=== PATIENT | female | born 1995 | race Caucasian/White ===

== ENCOUNTER 2018-01-31 22:00 | Outpatient (CLI) | payer SELFPAY ==
[2018-02-01 00:11] VITALS: BMI 41.1
[2018-02-01 01:03] VITALS: BP 116/71; PULSE 98; RESP 18; TEMP 36.5; O2SAT 98
--- NOTE | 2018-02-01 09:41 | OB.TRI.NOTE ---
History of Present Illness Date of Service: 01/31/18 Reason For Visit: R/O LABOR Date of Service: 01/31/18 Final RAGHU: 03/14/18 Gestational age: 34 Weeks and 1 Days Allergies naproxen [From Aleve] Allergy (Verified 02/01/18 00:11) Other Physical Exam Vitals: Vital Signs Temp Pulse Resp BP Pulse Ox 97.7 F L 98 18 116/71 98 02/01/18 01:03 02/01/18 01:03 02/01/18 01:03 02/01/18 01:03 02/01/18 01:03 NST - FHR Rate Baby A Baseline: 145 Variability:: Moderate Accelerations:: 15 x 15 Decelerations:: None NST Reactive:: Yes FHR Category:: Category I Uterine Activity:: rare ctxs, irritability Impression/Plan 22 YOF high risk multigravida at 34 1/7 weeks w/ c/o vaginal pain. Here for r/o labor no evidence of labor f/u in office of her choice in 1 week or prn no acute obstetrical or medical issues heat/ice prn musculoskeletal discomfort of , may use support band prn
--- NOTE | 2018-02-01 09:44 | OB.TRI.HP_ITS ---
History of Present Illness Date of Service: 01/31/18 Reason For Visit: R/O LABOR Date of Service: 01/31/18 Final RAGHU: 03/14/18 Gestational age: 34 Weeks and 1 Days Allergies naproxen [From Aleve] Allergy (Verified 02/01/18 00:11) Other Physical Exam Vitals: Vital Signs Temp Pulse Resp BP Pulse Ox 97.7 F L 98 18 116/71 98 02/01/18 01:03 02/01/18 01:03 02/01/18 01:03 02/01/18 01:03 02/01/18 01:03 NST - FHR Rate Baby A Baseline: 145 Variability:: Moderate Accelerations:: 15 x 15 Decelerations:: None NST Reactive:: Yes FHR Category:: Category I Uterine Activity:: rare ctxs, irritability Impression/Plan 22 YOF high risk multigravida at 34 1/7 weeks w/ c/o vaginal pain. Here for r/ o labor no evidence of labor f/u in office of her choice in 1 week or prn no acute obstetrical or medical issues heat/ice prn musculoskeletal discomfort of , may use support band prn
== END 2018-02-01 00:20 | disposition home or self-care (01) ==
LOC: WPOUT 22:34 → WP 22:35
PROVIDERS: Family Provider Family Medicine; PCP Family Medicine; Visit Provider Obstetrics & Gynecology
DX: O26.893 Other specified pregnancy related conditions, third trimester (principal); R10.2 Pelvic and perineal pain; Z3A.34 34 weeks gestation of pregnancy
CPT/HCPCS: 59025; 59050; 99218; G0378

== ENCOUNTER 2018-02-26 21:53 | Outpatient (CLI) | payer SELFPAY ==
[2018-02-26 22:32] VITALS: BMI 59.5
[2018-02-26 23:07] LABS: Red Blood Cells-Urine 0 SEEN /hpf (0-5)
[2018-02-26 23:11] LABS: Color, Urine Yellow (Yellow); Glucose, Dipstick Normal (Normal); Ketone-Dipstick 15 mg/dl (Negative); Leukocyte Esterase-Dipstick 100 /ul (Negative); Nitrite-Dipstick Negative (Negative); Occult Blood-Urine Negative /ul (Negative); Protein-Dipstick 30 mg/dl (Negative); Urine Bilirubin Dipstick Negative (Negative); Urine Clarity Clear (Clear); Urine Urobilinogen 1 mg/dl (Normal); Urine pH 6.5 (5.0 - 8.0)
[2018-02-26 23:17] LABS: Bacteria 1+ /hpf (None Seen); Mucous, Urine 1+ /hpf (<or=2+); Squamous Epithelial Cells - UA 10-25 SEEN /hpf (5-10); White Blood Cells 5-10 SEEN /hpf (0-5)
[2018-02-26 23:21] LABS: Amphetamine Urine VISTA NEGATIVE (<1000 ng/mL); Barbiturate Urine VISTA NEGATIVE (< 200 ng/mL); Benzodiazepine Urine VISTA NEGATIVE (< 200 ng/mL); Cocaine Urine VISTA NEGATIVE (< 300 ng/mL); Ecstacy Urine VISTA NEGATIVE (< 500 ng/mL); Methadone Urine VISTA NEGATIVE (< 300 ng/mL); PCP Urine VISTA NEGATIVE (< 25 ng/mL); THC Urine VISTA NEGATIVE (< 50 ng/mL); Vista UDS pH Range 6
--- NOTE | 2018-03-03 06:30 | OB.TRI.NOTE ---
History of Present Illness Date of Service: 02/26/18 Was patient seen by the physician?: No Reason For Visit: R/O LABOR Date of Service: 02/26/18 Final RAGHU: 03/14/18 Gestational age: 37 5 Allergies naproxen [From Aleve] Allergy (Verified 02/01/18 00:11) Other NST - FHR Rate Baby A Baseline: 135 bpm Variability:: Moderate Accelerations:: 15 x 15 Decelerations:: None NST Reactive:: Yes FHR Category:: Category I Uterine Activity:: irreg ctxs Impression/Plan 22 YOF high risk multigravida 37 w 5 d false labor
== END 2018-02-26 23:45 | disposition home or self-care (01) ==
LOC: WPOUT 22:26 → WP 22:26
PROVIDERS: Family Provider Family Medicine; PCP Family Medicine; Visit Provider Obstetrics & Gynecology
DX: O47.1 False labor at or after 37 completed weeks of gestation (principal); Z3A.37 37 weeks gestation of pregnancy
CPT/HCPCS: 36415; 59025; 59050; 80307; 81001; 87086; 87088; 96372; 99218; G0378

== ENCOUNTER 2018-03-10 10:41 | Outpatient (CLI) | payer MEDICAID, SELFPAY ==
[2018-03-10 11:00] VITALS: BMI 42.1
[2018-03-10] MEDS: Acetaminophen 500 MG Tablet 1000 MG PO (14:05)
--- NOTE | 2018-03-11 11:48 | OB.TRI.NOTE ---
History of Present Illness Date of Service: 03/10/18 Was patient seen by the physician?: Yes Reason For Visit: R/O LABOR Final RAGHU: 03/14/18 Gestational age: 39 Weeks and 4 Days History of Present Illness: Patient presents c/o pelvic pressure. Denies regular ctxs, LOF or VB. Reports good FM. She does reports increased symptoms for her Tourette's and is concerned about this. Allergies naproxen [From Aleve] Allergy (Verified 03/10/18 11:36) Other NST - FHR Rate Baby A Baseline: 135 Variability:: Moderate Accelerations:: 15 x 15 Decelerations:: Variable NST Reactive:: Yes Uterine Activity:: irregular Impression/Plan 22yo female @ 39&3 No evidence labor as cervix stable at 5/50/-2 Patient & her mother are distressed about her Tourette's & prior labor experience. Discussed that elective induction is reasonable for maternal mental health once the L&D unit can safely accomplish this. Also discussed early epidural to minimize pain. Patient discussed with ([facility]) who agrees with induction plan. Patient wishes to be to go a tertiary care center for induction. [facility] contacted & will accept patient today for induction.
--- NOTE | 2018-03-11 11:54 | OB.TRI.HP_ITS ---
History of Present Illness Date of Service: 03/10/18 Was patient seen by the physician?: Yes Reason For Visit: R/O LABOR Final RAGHU: 03/14/18 Gestational age: 39 Weeks and 4 Days History of Present Illness: Patient presents c/o pelvic pressure. Denies regular ctxs, LOF or VB. Reports good FM. She does reports increased symptoms for her Tourette's and is concerned about this. Allergies naproxen [From Aleve] Allergy (Verified 03/10/18 11:36) Other NST - FHR Rate Baby A Baseline: 135 Variability:: Moderate Accelerations:: 15 x 15 Decelerations:: Variable NST Reactive:: Yes Uterine Activity:: irregular Impression/Plan 22yo female @ 39&3 No evidence labor as cervix stable at 5/50/-2 Patient & her mother are distressed about her Tourette's & prior labor experience. Discussed that elective induction is reasonable for maternal mental health once the L&D unit can safely accomplish this. Also discussed early epidural to minimize pain. Patient discussed with ([facility]) who agrees with induction plan. Patient wishes to be to go a tertiary care center for induction. [facility] contacted & will accept patient today for induction.
== END 2018-03-10 15:45 | disposition home or self-care (01) ==
LOC: WPOUT 11:30 → WP 11:31
PROVIDERS: Family Provider Family Medicine; PCP Family Medicine; Visit Provider Obstetrics & Gynecology
DX: F95.2 Tourette's disorder (principal); O26.893 Other specified pregnancy related conditions, third trimester; Z3A.39 39 weeks gestation of pregnancy
CPT/HCPCS: 59025; 59050; 99218; G0378

== ENCOUNTER 2020-02-18 17:15 | Outpatient (CLI) | payer OTHER, SELFPAY ==
[2020-02-18 17:31] VITALS: PULSE 78; TEMP 36.7; O2SAT 98
[2020-02-18 17:49] VITALS: BP 115/61; PULSE 86
[2020-02-18 17:55] VITALS: BMI 42.2
[2020-02-18 18:08] VITALS: BP 102/59; PULSE 90
[2020-02-18 18:26] LABS: Protein, Urine (Random) 21.8 mg/dL (<11.9); Protein:Creat Ratio 159 mg/g CRE (0-200)
--- NOTE | 2020-03-02 11:08 | OB.TRI.PN ---
Progress Notes Date of Service: 02/19/20 Progress Note: Presented with headache and blurred vision. Was outside all day and not hydrating well. O: VSS A: Headache P: 1) Upon arrival headache. Once laying down headache resolved spontaneously from 02/07 to 0 and no further complaints. Discussed resting at home, increase hydration. If returns to call. 2) D/C home. No signs of preeclampsia. Laboratory Studies: Laboratory Tests 02/18/20 Range/Units 17:30 U Random Total Protein 21.8 H (<11.9) mg/dL Urine Creatinine 137.00 (NO RANGE EST.) mg/dL Protein/Creatinin Ratio 159 (0-200) mg/g CRE
== END 2020-02-18 18:30 | disposition home or self-care (01) ==
LOC: WPOUT 17:29 → OBT 17:31
PROVIDERS: Referring Provider Advanced Practice Midwife; Visit Provider Advanced Practice Midwife
DX: O26.899 Other specified pregnancy related conditions, unspecified trimester (principal); R51 Headache; H53.8 Other visual disturbances; Z3A.00 Weeks of gestation of pregnancy not specified
CPT/HCPCS: 59050; 82570; 84156; 99218; G0378

== ENCOUNTER 2020-05-12 20:54 | Outpatient (CLI) | payer OTHER, SELFPAY ==
[2020-05-12 21:18] VITALS: BMI 43.2
[2020-05-12 21:23] VITALS: BP 110/60; PULSE 90; TEMP 36.2; O2SAT 96
[2020-05-12 21:43] LABS: Bacteria 0 SEEN /hpf (None Seen); Mucous, Urine 0 SEEN /hpf (<or=2+); Red Blood Cells-Urine 0 SEEN /hpf (0-5)
[2020-05-12 21:44] LABS: Color, Urine Yellow (Yellow); Glucose, Dipstick Normal (Normal); Ketone-Dipstick Negative (Negative); Leukocyte Esterase-Dipstick 500 /ul (Negative); Nitrite-Dipstick Negative (Negative); Occult Blood-Urine Negative /ul (Negative); Protein-Dipstick Negative (Negative); Specific Gravity, Urine 1.015 (1.002-1.030); Urine Bilirubin Dipstick Negative (Negative); Urine Clarity Sl. Cloudy (Clear); Urine Urobilinogen Normal (Normal); Urine pH 6.5 (5.0 - 8.0)
[2020-05-12 21:51] LABS: Squamous Epithelial Cells - UA 10-25 SEEN /hpf (5-10); White Blood Cells 5-10 SEEN /hpf (0-5)
[2020-05-12 22:38] VITALS: BP 113/66; PULSE 82; TEMP 36.4; O2SAT 98
--- NOTE | 2020-05-13 05:46 | OB.TRI.HP_ITS ---
- Problem List (1) 36 weeks gestation of Status: Acute (2) Back pain affecting Status: Acute History of Present Illness Date of Service: 05/12/20 Reason For Visit: R/O LABOR Date of Service: 05/12/20 Final RAGHU: 06/05/20 Gestational age: 36 Weeks and 5 Days History of Present Illness: Patient is a at 36.4 weeks gestation that presents to triage for back pain that started earlier this evening. Reports pain as a constant, stabbing pain. Denies any loss of fluid, vaginal bleeding or cramping. Positive movement. Allergies naproxen [From Aleve] Allergy (Verified 05/12/20 21:18) Other bleeding shellfish derived Allergy (Verified 05/12/20 21:18) Anaphylaxis Laboratory Studies: Laboratory Tests 05/12/20 Range/Units 21:10 Urine Color Yellow (Yellow) Urine Clarity Sl. Cloudy (Clear) Urine pH 6.5 (5.0 - 8.0) Ur Specific [place] 1.015 (1.002-1.030) Urine Protein Negative (Negative) mg/dl Urine Glucose (UA) Normal (Normal) mg/dl Urine Ketones Negative (Negative) mg/dl Urine Occult Blood Negative (Negative) /ul Urine Nitrite Negative (Negative) Urine Bilirubin Negative (Negative) mg/dL Urine Urobilinogen Normal (Normal) mg/dl Ur Leukocyte Esterase 500 H (Negative) /ul Urine RBC 0 SEEN (0-5) /hpf Urine WBC 5-10 SEEN (0-5) /hpf Ur Squamous Epith Cells 10-25 SEEN (5-10) /hpf Urine Bacteria 0 SEEN (None Seen) /hpf Urine Mucus 0 SEEN (<or=2+) /hpf Review of Systems Constitutional: Denies: Chills, Fever Cardiovascular: Denies: Chest Pain Respiratory: Denies: Cough, Shortness of Breath Gastrointestinal: Denies: Abdominal Pain Musculoskeletal: Reports: Back Pain Physical Exam Vitals: Vital Signs Temp Pulse BP Pulse Ox 97.6 F L 82 113/66 98 05/12/20 22:38 05/12/20 22:38 05/12/20 22:38 05/12/20 22:38 General: Alert, Oriented x3 Cardiovascular: Regular rate Lungs: Normal air movement Abdomen: Soft, Non Tender, Gravid Neurological: Cranial nerves II-XII grossly intact Cervix Dilation (cm): 2 Station: -3 Effacement (%): 50 NST - FHR Rate Baby A Baseline: 120 Variability:: Moderate Accelerations:: 15 x 15 Decelerations:: None NST Reactive:: Yes FHR Category:: Category I Uterine Activity:: None Impression/Plan at 36.4 weeks gestation with back pain A/P UA collected and sent- negative Category 1 tracing No palpable contractions CE- 2/50/-3 unchanged Discharge home with labor precautions and follow up in office
== END 2020-05-12 23:00 | disposition home or self-care (01) ==
LOC: WPOUT 21:15 → OBT 21:17
PROVIDERS: Visit Provider Advanced Practice Midwife
DX: O26.893 Other specified pregnancy related conditions, third trimester (principal); Z3A.36 36 weeks gestation of pregnancy; M54.9 Dorsalgia, unspecified
CPT/HCPCS: 59025; 59050; 81001; 99218; G0378

== ENCOUNTER 2020-05-22 11:00 | Outpatient (CLI) | payer OTHER, SELFPAY ==
[2020-05-22 11:20] VITALS: BMI 42.4
[2020-05-22 11:45] VITALS: TEMP 36.9
--- NOTE | 2020-05-22 12:26 | PCM.HP.OB ---
- Problem List (1) 38 weeks gestation of Status: Acute (2) Multiparous Status: Acute (3) Excessive growth Status: Acute (4) Morbid obesity Status: Acute (5) Positive GBS test Status: Acute (6) Tourette disorder Status: Acute (7) Breech presentation Status: Acute History Date of Admission: 05/22/20 Final RAGHU: 06/05/20 Gestational age: 38 Weeks and 0 Days History of this : This is a 24 year-old, G 4, P 2011, at 38 weeks gestational age who presents for ECV for breech presentation. Medical History: Medical History (Last Updated 05/22/20 @ 12:[address] Peggy Treviño, DO) History of chlamydia Z86.19 Allergies naproxen [From Aleve] Allergy (Verified 05/12/20 21:18) Other bleeding shellfish derived Allergy (Verified 05/12/20 21:18) Anaphylaxis Home Medications: Home Medications Vits [Prenatabs FA] 1 tablet PO DAILY 02/01/18 Acetaminophen [Tylenol Extra Strength] 500 mg PO Q6H PRN PRN 05/12/20 Smoking Status: Former smoker Number of Fetus(es): 1 NST - FHR Rate Baby A Baseline: 130 Variability:: Moderate Accelerations:: 15 x 15 Decelerations:: None NST Reactive:: Yes Uterine Activity:: Quiet History Past Pregnancies: Past Pregnancies Delivery Date Name GA/ Weeks Outcome Route Wt Infant Sex Labor Length Anesthesia Delivery Location Provider FOB Labs: See [facility] record Physical Exam General: Alert, No apparent distress HEENT: Atraumatic Abdomen: Soft, Gravid Neurological: Neuro grossly intact Presentation: Breech Assessment/Plan All Active Problems 36 weeks gestation of (Acute) Back pain affecting (Acute) 38 weeks gestation of (Acute) Multiparous (Acute) Excessive growth (Acute) Morbid obesity (Acute) Positive GBS test (Acute) Tourette disorder (Acute) Breech presentation (Acute) This is a 24 year-old, G 4, P 2011, at 38 weeks gestational age who presents for scheduled ECV for breech presentation. -Risks of an external cephalic version with patient including but not limited to rupture of membranes, cord prolapse, placental abruption, distress and bradycardia, need for emergent , . Reviewed benefits and alternatives. Patient gave verbal consent desires to proceed with the external cephalic version. NST is reactive.
[2020-05-22] MEDS: Lactated Ringers 1,000 ML 125 ML IV (12:30)
[2020-05-22 12:44] VITALS: BP 122/71; PULSE 83
--- NOTE | 2020-05-22 12:48 | PCM.PN.BLA ---
Progress Note At bedside to scan patient. TAUS- vertex presentation. No ECV performed. Patient to have follow up early next week to schedule 39 wk IOL and have a bedside scan again. STROKE Vital Signs/Narrative: Vital Signs Pulse BP 05/22/20 12:44 83 122/71 H
== END 2020-05-22 13:00 | disposition home or self-care (01) ==
LOC: WPOUT 11:03 → WP 11:04
PROVIDERS: Referring Provider Obstetrics & Gynecology; Visit Provider Obstetrics & Gynecology
DX: O32.1XX0 Maternal care for breech presentation, not applicable or unspecified (principal); O36.63X0 Maternal care for excessive fetal growth, third trimester, not applicable or unspecified; O99.213 Obesity complicating pregnancy, third trimester; E66.01 Morbid (severe) obesity due to excess calories; O99.343 Other mental disorders complicating pregnancy, third trimester; F95.2 Tourette's disorder; Z3A.38 38 weeks gestation of pregnancy; Z88.6 Allergy status to analgesic agent
CPT/HCPCS: 59025; 59050; 99218; G0378

== ENCOUNTER 2020-05-29 07:05 | Inpatient (IN) | payer OTHER, SELFPAY ==
[2020-05-29] VITALS (42 sets, daily range): BP systolic 93–126; BP diastolic 53–83; PULSE 69–136; RESP 16; TEMP 36.1–36.6; O2SAT 94–100; BMI 43.7
[2020-05-29] MEDS: Oxytocin 30 units/NS 500 ml 30 UNITS/500 ML IV.SOLN IV (07:53)
[2020-05-29] MEDS: Lactated Ringers 1,000 ML 50 ML IV (07:53)
[2020-05-29] MEDS: Lactated Ringers 500 ML 999 ML IV ×2 (08:07→09:54)
[2020-05-29 08:14] LABS: Absolute Lymphocyte Count 1.63 X10^3/uL (0.83-4.51); Absolute Neutrophil Count 7.4 X10^3/uL (2.0-7.7); Basophil# 0.02 X10^3/uL; Basophil% 0.2 % (0-1); Eosinophil# 0.05 X10^3/uL; Eosinophils% 0.5 % (0-5); Hematocrit 35.8 % (37-47); Hemoglobin 11.6 g/dL (12.0-15.0); Lymphocyte # 1.63 X10^3/ul (4.0); Lymphocyte % 16.5 % (19-41); Mean Corp Hgb Conc 32.4 g/dL (32-36); Mean Corpuscular Hgb 27.6 pg (27.0-32.0); Mean Platelet Vol. 9.9 fl (6.2-12.0); Monocyte# 0.73 X10^3/uL; Monocyte% 7.4 % (0-10); NRBC Flagged by Analyzer 0 % (0-5); Neutrophil # 7.42 X10^3/uL (2.7-7.7); Neutrophil % 74.9 % (47-70); Platelet Count 201 K/mm3 (150-450); RBC Distribution Width SD 39.5 fl (35.1-43.9); Red Blood Count 4.21 M/mm3 (4.2-5.4); White Blood Count 9.9 K/mm3 (4.4-11.0)
[2020-05-29 08:26] LABS: Amphetamine Urine VISTA NEGATIVE (<1000 ng/mL); Barbiturate Urine VISTA NEGATIVE (< 200 ng/mL); Benzodiazepine Urine VISTA NEGATIVE (< 200 ng/mL); Cocaine Urine VISTA NEGATIVE (< 300 ng/mL); Ecstacy Urine VISTA NEGATIVE (< 500 ng/mL); Methadone Urine VISTA NEGATIVE (< 300 ng/mL); PCP Urine VISTA NEGATIVE (< 25 ng/mL); THC Urine VISTA NEGATIVE (< 50 ng/mL); Vista UDS pH Range 6
--- NOTE | 2020-05-29 08:40 | PCM.HP.OB ---
History Date of Admission: 05/29/20 Final RAGHU: 06/05/20 Gestational age: 39 Weeks and 0 Days History of this : This is a 24 year-old, G [], P [], at 39 weeks gestational age. Medical History: Medical History (Last Updated 05/29/20 @ 08:[address] 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 Kim Jean MD) History of cholecystectomy Z90.49 Allergies naproxen [From Aleve] Allergy (Verified 05/12/20 21:18) Other bleeding shellfish derived Allergy (Verified 05/12/20 21:18) Anaphylaxis Home Medications: Home Medications Vits [Prenatabs FA] 1 tablet PO DAILY 02/01/18 Acetaminophen [Tylenol Extra Strength] 500 mg PO Q6H PRN PRN 05/12/20 Topiramate [Topamax] 100 mg PO BID 05/22/20 Smoking Status: Former smoker Alcohol: None Substance Use Type: Marijuana Number of Fetus(es): 1 NST - FHR Rate Baby A Baseline: 135 Variability:: Moderate Accelerations:: 15 x 15 Decelerations:: None Uterine Activity:: Irregular History Past Pregnancies: Past Pregnancies Delivery Date Name GA/ Weeks Outcome Route Wt Sex Labor Length Anesthesia Delivery Location Provider FOB Labs: See [facility] H&P Physical Exam Vitals: Vital Signs Temp Pulse BP Pulse Ox 97.7 F L 98 116/83 H 99 05/29/20 07:46 05/29/20 07:46 05/29/20 07:46 05/29/20 07:46 General: Alert, Oriented x3 Abdomen: Soft, Non Tender, Non-Distended, Gravid Neurological: Cranial nerves II-XII grossly intact [employer]GER: Normal external genitalia Estimated gestational size: Appropriate for gestational size Presentation: Cephalic Cervix Dilation (cm): 4 - AROM clear fluid. IUPC & FSE placed. Station: -3 Effacement (%): 70 Assessment/Plan All Active Problems (Last Updated 05/22/20 @ 12:[address] Peggy Treviño, DO) 36 weeks gestation of (Acute) Back pain affecting (Acute) 38 weeks gestation of (Acute) Multiparous (Acute) Excessive growth (Acute) Morbid obesity (Acute) Positive GBS test (Acute) Tourette disorder (Acute) Breech presentation (Acute) This is a 24 year-old, , at 39 weeks gestational age. Admit to L&D Induction for Tourette's & pseudoseizures - on pitocin, s/p AROM GBS positive - pcn per protocol COVID test ordered EFW - less than 5,000g, patient with h/o 10lb delivery and has adequate pelvis Pain - getting early epidural Routine care
[2020-05-29] MEDS: fentaNYL-bupivacaine (epidural) 100 ML BAG EPIDURAL ×2 (09:55→13:55)
[2020-05-29] MEDS: Lactated Ringers 1,000 ML 200 ML IV (12:23)
[2020-05-29] MEDS: Oxytocin 30 units/NS 500 ml 30 UNITS/500 ML IV.SOLN 334 UNITS IV (14:28)
--- NOTE | 2020-05-29 14:42 | PCM.OPRPT ---
Vaginal Delivery Maternal Presentation: Elective Induction Method of Induction: Pitocin, Amniotomy Amniotic Membrane Rupture Type: Artificial Amniotic Fluid Description: Clear Final RAGHU: 06/05/20 Gestational age: 39 Weeks and 0 Days Date of Procedure: 05/29/20 Pre-Operative Diagnosis: (1) Tourette's disease (2) Elective induction Post-Operative Diagnosis: Same Surgery/ Procedure Performed: Spontaneous Vaginal Delivery Type of Anesthesia: Epidural Description of Procedure: Patient prepped & draped in stirrups when C/C/+2. She pushed to deliver the head. Tight nuchal cord noted and thus it was doubly clamped & cut. Patient then pushed again and the head gently guided to allow delivery of anterior & posterior shoulders. No excess traction placed on the head. Body delivered & infant placed on the maternal abdomen. Placenta delivered with gentle traction and good uterine tone obtained. Presentation: CONNIE Placental Delivery Description: Expressed Placenta Disposition: [facility] Cord Vessel Description: 3 Vessels Nuchal Cord Compression: With compression Cord Entanglement: Around neck x 1, tight Drain: Vann to straight drain Estimated Blood Loss: 200ml A gender: Male - Kale (1 minute): 8 (5 minute): 9 Episiotomy Description: None Laceration: None Medications given after delivery: IV Pitocin Complications: None
[2020-05-29] MEDS: 0.9% Saline Lock 10 ML Syringe IV (17:06)
[2020-05-29] MEDS: Acetaminophen 500 MG Tablet 1000 MG PO (21:04)
[2020-05-30] VITALS (8 sets, daily range): BP systolic 92–112; BP diastolic 51–69; PULSE 67–90; RESP 16; TEMP 36.2–36.6; O2SAT 98–99
[2020-05-30] MEDS: Ibuprofen 600 MG Tablet PO ×2 (00:22→09:02)
--- NOTE | 2020-05-30 08:50 | PCM.PN.OB ---
Subjective: pain well controlled, average lochia, no N/V - Physical Exam Vitals/I&O's: Vital Signs Temp Pulse Resp BP Pulse Ox 97.8 F 67 16 92/54 L 99 05/30/20 04:00 05/30/20 04:24 05/30/20 04:00 05/30/20 04:24 05/30/20 04:00 Oxygen Delivery Method Room Air Weight: 122.9 kg Body Mass Index (BMI) 43.7 Intake and Output for Last 24 Hours 05/28/20 05/29/20 05/30/20 23:59 23:59 23:59 Intake Total 2762.76 / 2762.76 Output Total 1000 / 1000 Balance 1762.76 / 1762.76 General: Alert, Cooperative, No apparent distress Microbiology Past 72 Hours 05/29/20 08:50 Mucosa - Nose - Final Laboratory Results 05/29/20 07:35: Blood Type AB POSITIVE, Antibody Screen NEGATIVE Current Medications Acetaminophen (Acetaminophen 500 Mg Tablet) 1,000 mg PO Q8H PRN PRN PRN Reason: Pain Score 1-3 Last Admin: 05/29/20 21:04 Dose: 1,000 mg Documented by: Bisacodyl (Bisacodyl 10 Mg Suppository) 10 mg RECTAL UD PRN PRN Reason: If no BM Dibucaine (Dibucaine 30 Gm Tube) 1 applic TOPICAL TID PRN PRN; Protocol PRN Reason: Discomfort Hydrocortisone (Hydrocortisone 2.5% Crm) 1 applic TOPICAL TID PRN PRN; Protocol PRN Reason: Discomfort Ibuprofen (Ibuprofen 600 Mg Tablet) 600 mg PO Q6H PRN PRN PRN Reason: Pain Score 1-3 Last Admin: 05/30/20 00:22 Dose: 600 mg Documented by: Methylergonovine Maleate (Methylergonovine 0.2 Mg/Ml Ampul) 0.2 mg IM X1 PRN PRN Reason: Excess bleeding/uterine atony Ondansetron HCl (Ondansetron 4 Mg/2 Ml Vial) 4 mg IV Q4H PRN PRN PRN Reason: Nausea Oxycodone HCl (Oxycodone 5 Mg Tablet) 5 - 10 mg PO Q4H PRN PRN PRN Reason: Pain Score 4-10 Senna/Docusate Sodium (Senna/Docusate Sodium 1 Tablet) 1 - 2 tablet PO DAILY PRN PRN PRN Reason: Constipation Simethicone (Simethicone 80 Mg Tablet) 80 mg PO PCHS PRN PRN Reason: Indigestion/Stomach pain Sodium Chloride (0.9% Saline Lock 10 Ml Syringe) 5 - 15 ml IV UD PRN PRN Reason: SALINE FLUSH Last Admin: 05/29/20 17:06 Dose: 10 ml Documented by: Medical Necessity - Tobacco Use Smoking Status: Former smoker Assessment/Plan All Active Problems (Last Updated 05/29/20 @ 08:[address] Kim Jean MD) 36 weeks gestation of (Acute) Back pain affecting (Acute) 38 weeks gestation of (Acute) Multiparous (Acute) Excessive growth (Acute) Morbid obesity (Acute) Positive GBS test (Acute) Tourette disorder (Acute) Breech presentation (Acute) PPD#1 s/p routine care infant doing well likely d/c home later today if ok w/ peds
--- NOTE | 2020-05-30 08:51 | DCINST_ITS ---
Discharge Diet: No Restrictions Discharge Activity: Return to Normal Activity, May not drive while taking narcotic pain medications., May Shower May resume sexual activity in: 4-6 weeks Additional Activity Instructions:: Nothing in the vagina for 4-6 weeks. You may return to work/school in 6 weeks. Call your doctor if your incision/area has: Continuous Slow Oozing, Sudden Increased Bleeding, Increased Pain/ Swelling, Increased Redness, Foul Smelling Discharge Additional Instructions: If you experience any of the following, contact your healthcare provider. * Bleeding that soaks a pad every hour for 2 hours * Fever 100.4 or higher * Unrelieved incision or abdominal pain * Swelling, redness, discharge or bleeding from your incision or episiotomy site * Your incision begins to separate * Problems urinating (including inability to urinate or burning while urinating). * Visual changes * Severe headache * Flu-like symptoms * Pain or redness in one of both of your breasts * Pain, warmth, tenderness or swelling in your legs, especially the calf area * Frequent nausea and vomiting * Symptoms of depression or anxiety If you experience any of the following, call 911 or go to the nearest Emergency Room. * Chest pain * Problems breathing * Seizure activity * Partial or complete paralysis of a body part, slurred speech, weakness or drooping of the face, or a sudden inability to walk or hold your balance Allergies/Adverse Reactions: Allergies naproxen [From Aleve] Allergy (Verified 05/12/20 21:18) Other bleeding shellfish derived Allergy (Verified 05/12/20 21:18) Anaphylaxis Medications to take at Discharge Vits [Prenatabs FA ] 1 tablet PO DAILY 02/01/18 Acetaminophen [Tylenol] 500 mg PO Q6H PRN PRN 05/12/20 Topiramate [Topamax] 100 mg PO BID 05/22/20 Ibuprofen [Motrin] 600 mg PO Q6H PRN #60 tab 05/30/20 The following prescriptions were given: Ibuprofen [Motrin] 600 mg PO Q6H PRN #60 tab PRN Reason: Pain Transmission Status: Pending to [id number] Please Follow Up With: Kim Jean MD - [phone] When: Call to make an appointment with your doctor in 1-2 and 6 weeks or as needed Primary Care Physician: Care Physician,No Primary [Primary Care Provider] - Test Results: Test results from this visit will be discussed in further detail at your follow- up appointment, if applicable.
[2020-05-30] MEDS: Topiramate 100 MG Tablet PO (11:13)
== END 2020-05-30 18:00 | disposition home or self-care (01) | DRG 807 ==
PROVIDERS: Admitting Provider Obstetrics & Gynecology; Referring Provider Obstetrics & Gynecology; Visit Provider Obstetrics & Gynecology
DX: O75.9 Complication of labor and delivery, unspecified (principal); Z37.0 Single live birth; O99.824 Streptococcus B carrier state complicating childbirth; O99.344 Other mental disorders complicating childbirth; F95.2 Tourette's disorder; O69.1XX0 Labor and delivery complicated by cord around neck, with compression, not applicable or unspecified; Z3A.39 39 weeks gestation of pregnancy; Z87.891 Personal history of nicotine dependence; Z90.49 Acquired absence of other specified parts of digestive tract
CPT/HCPCS: 59025; 59050; 80307; 85025; 86850; 86900; 86901; 87426; 99218; J7120; A4216; G0378; J3490

== ENCOUNTER 2021-11-12 06:20 | Day surgery (SDC) | payer OTHER, SELFPAY ==
[2021-11-12 06:46] LABS: Internal QC Validated? YES +Cl - CLEAR BKGD; Pregnancy, Urine Negative Negative
[2021-11-12 07:04] VITALS: BP 123/66; PULSE 71; RESP 14; TEMP 36.3; O2SAT 100; BMI 39.9
[2021-11-12] MEDS: Lactated Ringers 1,000 ML 15 ML IV (07:28)
[2021-11-12 07:32] LABS: Hematocrit 39.4 % (37-47); Hemoglobin 11.8 g/dL (12.0-15.0); Mean Corp Hgb Conc 29.9 g/dL (32-36); Mean Corpuscular Hgb 23.6 pg (27.0-32.0); Mean Corpuscular Volume 78.8 fL (81-99); Mean Platelet Vol. 9.6 fl (6.2-12.0); Platelet Count 380 K/mm3 (150-450); RBC Distribution Width SD 36.9 fl (35.1-43.9); White Blood Count 7.6 K/mm3 (4.4-11.0)
--- NOTE | 2021-11-12 08:00 | EMB_PTH ---
PATIENT: JUANA KEITA [place] [facility] [id number] AGE/SX: 26/F ROOM: RE11/12/[address]: Dr. Peggy Treviño DO : 1995 BED: DIS: 11/12/2021 SPEC #: [id number] RECD: 11/12/21 10:04 STATUS: ALISON AGUILERAChantell #: [id number] RADHA: 11/12/21 08:[address]: Peggy Treviño DEPT: SURGICAL PATHOLOGY RECD BY: Liss Vasquez ENTERED: 11/12/21 12:41 SP TYPE: ENDOM BX/C ROMAN DR: No Primary Care Phys Tissues: Endometrium, NOS Procedures: Surgery Specimen Level IV HEADER OPERATION: Hysteroscopy, D & C, polypectomy, Symphion, IUD insertion PRE-OP DIAGNOSIS: Menorrhagia TISSUE SUBMITTED: Endometrial curettings and polyp MICROSCOPIC DIAGNOSIS Endometrial curettings and polyp: Polypoid fragments of mildly disordered proliferative endometrium with focal glandular breakdown. Fragments of benign endocervix. AM:tad 11/13/2021 MICROSCOPIC DESCRIPTION Slides are reviewed. GROSS DESCRIPTION Received in fixative is one container labeled with the patient's name and designated endometrial curettings and polyp. The specimen consists of multiple fragments of hemorrhagic soft tissue mixed with mucoid tissue that in aggregate measure 5 x 3 x 0.3 cm. The entire specimen is submitted in two cassettes. / SJ:tad 11/12/2021 TC:5 CPT: 92809
[2021-11-12] MEDS: Lidocaine 1% (20 ml mdv) 20 ML Vial (08:44)
[2021-11-12] MEDS: Lubricating Jelly 60 GM Tube 30 GM (08:44)
--- NOTE | 2021-11-12 09:05 | PCM.DC ---
Discharge Instructions Diet Discharge Diet: No restrictions Activity Discharge Activity: May Drive (after 24 hours) and May Shower May resume sexual activity in: 1-2 weeks Weight Bearing Status: Weight bearing as tolerated Lifting Restrictions: None Additional Activity Instructions:: No tampons, intercourse, hot tubs, tub baths, pools for 1 week Dressing / Incision Call your doctor if you observe: Fever of 101 or Higher, Numbness or Tingling, Change in Color, Inability to urinate, Using more than 1 pad per hour, Shortness of breath, Dizziness, Fainting spells, Swelling in the ankles, Chest pain, Increased palpitations (irregular heartbeat), Calf discomfort and Uncontrolled pain Follow Up Care Please Follow Up With: Peggy Treviño DO When: 1 week Test Results: Test results from this visit will be discussed in further detail at your follow-up appointment, if applicable. Discharge Plan Admission Primary Reason for Your Visit: surgery Attending Provider: Peggy Treviño Primary Care Provider: Care Physician,Rosa Primary Discharge Orders/Prescriptions Prescriptions: New ibuprofen 600 mg tablet 600 mg PO Q6H PRN (Reason: pain) Qty: 20 RF: 0 Continued acetaminophen 500 MG tablet 500 mg PO Q6H PRN PRN (Reason: Headache) RF: 0 ferrous sulfate 325 mg (65 mg iron) Capsule, Extended Release 325 mg PO QODAY RF: 0 Discontinued medroxyprogesterone [Provera] 2.5 mg Tablet 2.5 mg PO DAILY RF: 0 Referrals / Follow Up: Care Physician,No Primary [Primary Care Provider] - Disposition Disposition (needs filled in before D/C Order can be placed): Home, Self Care
--- NOTE | 2021-11-12 09:08 | PCM.OPRPT ---
Problems Associated Problem List Diagnoses (1) Morbid obesity: (2) Menorrhagia: (3) DUB (dysfunctional uterine bleeding): (4) Anemia: Report of Operation Date of Procedure: 11/12/21 Pre-Operative Diagnosis: Menorrhagia, DUB, obesity, acute blood loss anemia Post-Operative Diagnosis: As above, endometrial polyp Surgery/Procedure Performed:: Hysteroscopy, D&C, Mirena IUD placement Description of Surgical Findings:: Uterine cavity with two very small endometrial polyps noted < 1 cm in size. Cavity was otherwise normal appearing. Bilateral tubal ostia visualized. Surgeon: Peggy Treviño Type of Anesthesia: MAC Special Medications: None Specimen's removed: Endometrial curettings and endometrial polyp Drains: None Estimated Blood Loss (mL): < 50 cc Fluids Replaced: 300 cc deficit Description of Procedure: Patient was taken back to the operating room where MAC anesthesia was found to be adequate. She was prepped and draped in the dorsal lithotomy position using yellowfin stirrups. A weighted speculum was placed in the vagina to expose the cervix. The anterior lip of the cervix was grasped with single-tooth tenaculum. The cervix were serially dilated to accommodate the diagnostic hysteroscope. The hysteroscope was advanced to the fundus of the uterus and using normal saline the uterine cavity was distended. 2 very small endometrial polyps were noted, and they were less than 1 cm in size. The endometrial lining was otherwise normal-appearing. Cavity was otherwise normal-appearing. Bilateral tubal ostia were visualized. The hysteroscope was removed. The Symphion hysteroscope was then set up and advanced to the fundus of the uterus. The uterus was distended with normal saline. There was poor distention using the Symphion hysteroscope device and therefore no resection was performed. The Symphion device hobbies and crafts sales representative was present for assistance. The endometrial polyps were so small that it was felt they could be removed using a sharp curettage. This Symphion hysteroscope was removed. A sharp curettage was performed with return of polypoid tissue. The tissue was sent to pathology for review. Uterus sounded to 9 cm. The Mirena IUD the device was set and placed in the uterine cavity in usual sterile fashion. The IUD strings were trimmed to 2 cm. Instruments were removed from the vagina. A vaginal sweep was performed. Bleeding was hemostatic. Patient was taken recovery in stable condition. Grafts/Implants Used: Mirena IUD Admit VTE Documentation VTE Present on Admission: No VTE Mechan Device Prophylaxis: SCD's
[2021-11-12 09:10] VITALS: BP 117/80; BP 123/66; PULSE 64; RESP 18; TEMP 36.7; O2SAT 100
[2021-11-12 09:15] VITALS: BP 120/71; BP 123/66; PULSE 67; RESP 18; O2SAT 97
[2021-11-12 09:20] VITALS: BP 123/66; BP 126/62; PULSE 55; RESP 18; O2SAT 97
[2021-11-12 09:25] VITALS: BP 103/71; BP 123/66; PULSE 50; RESP 18; TEMP 36.6; O2SAT 97
[2021-11-12 09:49] VITALS: BP 108/67; BP 123/66; PULSE 58; RESP 16; TEMP 36.6; O2SAT 97
== END 2021-11-12 23:59 | disposition home or self-care (01) ==
LOC: SDC 06:21 → AC 06:22
PROVIDERS: Referring Provider Obstetrics & Gynecology; Visit Provider Obstetrics & Gynecology
PROC: (CPT 58661; principal; 2021-11-12 07:45)
DX: N92.0 Excessive and frequent menstruation with regular cycle (principal); E66.01 Morbid (severe) obesity due to excess calories; Z68.41 Body mass index [BMI] 40.0-44.9, adult; N93.8 Other specified abnormal uterine and vaginal bleeding; N84.0 Polyp of corpus uteri; D62 Acute posthemorrhagic anemia; Z30.430 Encounter for insertion of intrauterine contraceptive device; Z87.891 Personal history of nicotine dependence; Z20.822 Contact with and (suspected) exposure to COVID-19
CPT/HCPCS: 58558; 58300; 00952; 81025; 85027; 86850; 86900; 86901; 87426; 88305; C9803; J7120; J2405

== ENCOUNTER 2022-01-15 10:46 | Day surgery (SDC) | payer OTHER, SELFPAY ==
[2022-01-15] VITALS (8 sets, daily range): BP systolic 71–153; BP diastolic 56–98; PULSE 60–99; RESP 16–24; TEMP 36–36.8; O2SAT 90–100; BMI 41.6
--- NOTE | 2022-01-15 | FALS_PTH ---
PATIENT: JUANA KEITA LOC: [facility] [place] U#:[id number] AGE/SX: 26/F ROOM: RE01/15/[address]: Dr. Peggy Treviño DO : 1995 BED: DIS: 01/15/2022 SPEC #: [id number] RECD: 01/15/22 15:08 STATUS: ALISON REChantell #: [id number] RADHA: 01/15/22 00:[address]: Peggy Treviño DEPT: SURGICAL PATHOLOGY RECD BY: Les Garcia ENTERED: 01/18/22 08:44 SP TYPE: FALL TUBES OTHR DR: No Primary Care Phys Tissues: Fallopian tube Procedures: Surgery Specimen Level II HEADER OPERATION: Laparoscopic salpingectomy PRE-OP DIAGNOSIS: Elective sterilization TISSUE SUBMITTED: Bilateral fallopian tubes MICROSCOPIC DIAGNOSIS Bilateral fallopian tubes, salpingectomy: Bilateral fallopian tubes, no pathologic diagnosis. LOU:tad 01/19/2022 MICROSCOPIC DESCRIPTION Slides are reviewed. GROSS DESCRIPTION Received in fixative is one container labeled with the patient's name and designated bilateral fallopian tubes. The specimen consists of bilateral fallopian tubes including fimbrial ends measuring 7 cm in length and 0.5 cm in diameter and 7.5 cm in length and 0.6 cm in diameter. The fallopian tubes are not identified as right or left. Sections reveal unremarkable cut surfaces. Laundromat Worker sections are submitted in two cassettes with each cassette containing one fallopian tube. / SJ:tad 01/18/2022 TC:4 CPT: 51225 x2
[2022-01-15 11:35] LABS: Internal QC Validated? YES +Cl - CLEAR BKGD; Pregnancy, Urine Negative Negative
[2022-01-15 11:42] LABS: Hematocrit 40.4 % (37-47); Hemoglobin 12.6 g/dL (12.0-15.0); Mean Corp Hgb Conc 31.2 g/dL (32-36); Mean Corpuscular Hgb 23.8 pg (27.0-32.0); Mean Corpuscular Volume 76.4 fL (81-99); Mean Platelet Vol. 9.6 fl (6.2-12.0); Platelet Count 317 K/mm3 (150-450); RBC Distribution Width CV 15.3 % (11.6-14.6); RBC Distribution Width SD 41.7 fl (35.1-43.9); Red Blood Count 5.29 M/mm3 (4.2-5.4); White Blood Count 8.3 K/mm3 (4.4-11.0)
--- NOTE | 2022-01-15 13:02 | DCINST_ITS ---
Discharge Instructions Diet Discharge Diet: No restrictions Activity Discharge Activity: May Drive (More than 24 hours after surgery, and once you feel strong enough to slam on a brake or turn a steering wheel sharply) Return to work on:: 01/18/22 May resume sexual activity in: 1-2 weeks (no tampons, intercourse, hot tubs, baths, pools) Ice area for (Minutes): 15 Weight Bearing Status: Weight bearing as tolerated Lifting Restrictions: nothing heavier than 20 lbs for 1 week Dressing / Incision Call your doctor if your incision/area has: Continuous Slow Oozing, Sudden Increased Bleeding, Increased Pain/ Swelling, Increased Redness, Foul Smelling Discharge and Swelling at the incision site Call your doctor if you observe: Fever of 101 or Higher, Coldness, Increased Pain, Numbness or Tingling, Change in Color, Inability to urinate, Inability to have a bowel movement, Using more than 1 pad per hour, Shortness of breath, Dizziness, Fainting spells, Swelling in the ankles, Chest pain, Increased palpitations (irregular heartbeat), Calf discomfort and Uncontrolled pain Suture Line Care: Avoid Pulling/Pushing and Avoid Pinching/Bending Remove Dressing in: leave until fall off (The glue will start to peel or fall off. Ok to peel off or cut if it is coming up. There are sutures underneath the glue) Cleanse incision/area with: Soap & Water Follow Up Care Please Follow Up With: Peggy Treviño DO When: 1 week post op Test Results: Test results from this visit will be discussed in further detail at your follow- up appointment, if applicable. Discharge Plan Admission Primary Reason for Your Visit: surgery Attending Provider: Peggy Treviño Primary Care Provider: Care Physician,Rosa Primary Discharge Orders/Prescriptions Prescriptions: New oxycodone-acetaminophen [Percocet] 5-325 mg tablet 1 tab PO Q6H PRN (Reason: pain) 7 Days Qty: 10 0RF Continued ibuprofen 600 mg tablet 600 mg PO Q6H PRN (Reason: pain) Qty: 20 0RF Discontinued acetaminophen 500 MG tablet 500 mg PO Q6H PRN PRN (Reason: Headache) Referrals / Follow Up: Care PhysicianNo Primary [Primary Care Provider] - Disposition Disposition (needs filled in before D/C Order can be placed): Home, Self Care
[2022-01-15] MEDS: Bupivacaine Mpf 0.5% 30 ML VIAL (13:10)
--- NOTE | 2022-01-15 14:12 | OP.PCM_ITS ---
Problems Associated Problem List Diagnoses (1) Sterilization: Report of Operation Date of Procedure: 01/15/22 Pre-Operative Diagnosis: Request for sterilization Post-Operative Diagnosis: As above Surgery/Procedure Performed:: Laparoscopic bilateral salpingectomy, cauterization of ovarian cyst wall Description of Surgical Findings:: Normal-appearing uterus and bilateral fallopian tubes. Normal-appearing pelvis. Small amount of dark red blood noted within the pelvis, and a ruptured simple appearing left ovarian cyst was noted that was about 3 cm in size. The cyst wall was slightly bleeding. Surgeon: Peggy Treviño circulation man: Ember Cintron Type of Anesthesia: General Special Medications: None Specimen's removed: Bilateral fallopian tubes Drains: None Estimated Blood Loss (mL): < 50 cc Fluids Replaced: 1000 mL Description of Procedure: Patient requested sterilization and does not desire . She understands this is permanent and irreversible, and there is a risk of regret. She desires to keep the Mirena IUD due to period control. She had acute, severe pain a few weeks ago and was scheduled to come into the office but did not show for the appointment. Suspect possible rupture of ovarian cyst at that time. Patient was taken to the operating room where general anesthesia was induced. She was prepped and draped in the dorsal lithotomy position using yellowfin stirrups. A weighted speculum was placed in the vagina. A single-tooth tenaculum was placed on the anterior lip of the cervix. A uterine manipulator was placed. The speculum was removed. Gloves were changed and attention was turned to the abdominal portion of the procedure. Local was infiltrated at all port sites. An infraumbilical incision was made to accommodate a 5 mm port. A 5 mm port was placed under direct visualization using the laparoscope, and once confirmed intraperitoneal CO2 insufflation was initiated. The site of entry was examined and no injury was noted. The patient was placed in Trendelenburg position. A small amount of dark red blood was noted in the pelvis, and a ruptured simple appearing left ovarian cyst that was about 3 cm in size was noted. A left lateral 5 mm port was placed. A right lateral 5 mm port was placed. The right fallopian tube was followed out to the fimbriated end and using the LigaSure device the mesosalpinx was serially clamped, cauterized, and transected until reaching the level of the cornua. Once the level of the cornua the fallopian tube was clamped, cauterized, and transected to remove the right fallopian tube. The same was performed on the left after the left fallopian tube was followed out to the fimbriated end, and left fallopian tube was removed. The right ovary was normal-appearing. The place of rupture of the left ovarian cyst was noted and there was very minimal slight bleeding noted. The LigaSure device was used to cauterize the cyst wall where the rupture occurred. Dilan was placed over the site as well. Good hemostasis was noted. The ports were removed and the abdomen was exsufflated. The skin was closed with Monocryl in a subcuticular fashion. Glue was placed over the incisions. Instruments were removed from the vagina and a vaginal sweep was performed. Instrument, sponge, needle counts were correct. The patient was taken to the recovery in stable condition. The registered sales assistant as noted above was present for the entire case and helped with draping the patient, removal of fallopian tubes, and closure. Grafts/Implants Used: None Procedure Start Time: 13:21 Procedure Stop Time: 14:11 Complications None Admit VTE Documentation VTE Mechan Device Prophylaxis: SCD's
== END 2022-01-15 17:04 | disposition home or self-care (01) ==
LOC: SDC 10:49 → AC 10:49
PROVIDERS: Referring Provider Obstetrics & Gynecology; Visit Provider Obstetrics & Gynecology
PROC: (CPT 58661; principal; 2022-01-15 12:15)
DX: Z30.2 Encounter for sterilization (principal); N83.292 Other ovarian cyst, left side; Z97.5 Presence of (intrauterine) contraceptive device; Z87.891 Personal history of nicotine dependence
CPT/HCPCS: 58661; 81025; 85027; 86850; 86900; 86901; 88302; J7120; J2405

== ENCOUNTER → 2022-06-28 | Outpatient (CLI) | payer OTHER, SELFPAY ==
--- NOTE | 2022-06-28 10:05 | RAD_ITS ---
STUDY: X-RAY CHEST REASON FOR EXAM: Female, 27 years old. Inflammatory spondylopathies TECHNIQUE: PA and lateral views of the chest. COMPARISON: Comparison is made with prior chest radiograph dated 02/18/2014. FINDINGS: The lungs are clear and expanded. There is no demonstrated pleural abnormality. Normal size heart. Normal mediastinum and ad. Normal visualized pulmonary arteries. Normal visualized aortic arch and descending thoracic aorta. Normal visualized thoracic spine. Normal visualized ribs, clavicles, and shoulders. There is no demonstrated abnormality of the visualized soft tissue structures of the upper abdomen. RAD/Chest PA and Lateral IMPRESSION: Normal x-ray examination of the chest. Electronically Signed: Uzair Hoffman MD at 15:23 EST ,
--- NOTE | 2022-06-28 10:05 | RAD_ITS ---
STUDY: X-RAY - PELVIS REASON FOR EXAM: Female, 27 years old. Inflammatory spondylopathies TECHNIQUE: One view of the pelvis was obtained. COMPARISON: None. FINDINGS: There is a non-specific bowel gas pattern. IUD is seen within the pelvis. Normal bilateral iliac wings, sacroiliac joints and visualized sacrum. Normal visualized bilateral superior and inferior pubic rami. There is narrowing with sclerosis of the pubic symphysis. Normal ischial tuberosities. Normal visualized right femoral head. Normal right acetabulum. Normal right hip joint. Normal visualized left femoral head. Normal left acetabulum. Normal left hip joint. 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 IUD is seen within the pelvis. Electronically Signed: Uzair Hoffman MD at 15:22 EST ,
[2022-06-28 12:19] LABS: Erythrocyte Sedimentation Rate 11 mm/hr (0-30)
[2022-06-28 12:24] LABS: Absolute Lymphocyte Count 1.64 X10^3/uL (0.83-4.51); Absolute Neutrophil Count 6.3 X10^3/uL (2.0-7.7); Basophil# 0.02 X10^3/uL; Basophil% 0.2 % (0-1); Eosinophil# 0.07 X10^3/uL; Eosinophils% 0.8 % (0-5); Hemoglobin 14.3 g/dL (12.0-15.0); Lymphocyte # 1.64 X10^3/ul (0.83-4.51); Lymphocyte % 19.2 % (19-41); Mean Corp Hgb Conc 31.8 g/dL (32-36); Mean Corpuscular Hgb 26.7 pg (27.0-32.0); Mean Platelet Vol. 10.7 fl (6.2-12.0); Monocyte# 0.46 X10^3/uL; Monocyte% 5.4 % (0-10); NRBC Flagged by Analyzer 0 % (0-5); Neutrophil # 6.34 X10^3/uL (2.7-7.7); Platelet Count 289 K/mm3 (150-450); RBC Distribution Width CV 13.9 % (11.6-14.6); RBC Distribution Width SD 42.3 fl (35.1-43.9); Red Blood Count 5.36 M/mm3 (4.2-5.4); White Blood Count 8.6 K/mm3 (4.4-11.0)
[2022-06-28 12:56] LABS: ALB/GLOB Ratio 1.2 RATIO (0.9-2.4); AST(SGOT) 8 U/L (15-37); Alanine Aminotransfer ALT/SGPT 23 U/L (13-56); Albumin, Serum 3.6 g/dL (3.2-5.0); Alkaline Phosphatase 48 U/L (45-117); Anion Gap 4 (5-15); BUN 10 mg/dL (7-18); BUN/Creat Ratio 12.7 RATIO (10-20); CRP 5.06 mg/L (0.0-3.0); Calcium,Total 8.7 mg/dL (8.5-10.1); Chloride 108 mmol/L (98-107); Creatinine, Serum 0.79 mg/dL (0.55-1.02); EST Glomerular Filtration Rate 93 mL/min (>60); Est Glom Filt Rate - Afr Amer 112 mL/min (>60); Globulin 3.1 g/dL (2.2-4.2); Glucose 90 mg/dL (74-106); Potassium 4.1 mmol/L (3.5-5.1); Protein, Total 6.7 g/dL (6.4-8.2); Rheumatoid Factor < 10.0 IU/mL (<15); Sodium Level 140 mmol/L (136-145)
[2022-06-28 13:27] LABS: Hepatitis B Surface Antibody Non-Reactive; Hepatitis B Surface Antigen Non-Reactive (Nonreactive); Hepatitis C Antibody Non-Reactive (Nonreactive)
[2022-06-29 16:06] LABS: ANTINUCLEAR ANTIBODIES DIRECT Negative (Negative)
[2022-06-30 20:07] LABS: QNTFERON TB Mitogen Value > 10.00 IU/mL (.); QNTFERON TB Nil Value 0 IU/mL (.); QNTFERON TB1+ Ag Value 0 IU/mL (.); QNTFERON TB2+ Ag Value 0 IU/mL (.)
[2022-06-30 20:15] LABS: CCP IgG Antibodies 2 units (0-19); QNTIFERON TB Positive Criteria Negative (Negative)
== END | disposition home or self-care (01) ==
PROVIDERS: Referring Provider Internal Medicine Rheumatology; Visit Provider Internal Medicine Rheumatology
DX: M46.80 Other specified inflammatory spondylopathies, site unspecified (principal); M21.40 Flat foot [pes planus] (acquired), unspecified foot; H53.039 Strabismic amblyopia, unspecified eye; F95.2 Tourette's disorder; R51.9 Headache, unspecified; F41.9 Anxiety disorder, unspecified; F32.A Depression, unspecified
CPT/HCPCS: 36415; 71046; 72170; 80053; 85025; 85652; 86038; 86140; 86200; 86431; 86480; 86706; 86803; 87340